=== PATIENT | female | born 1930 | race Caucasian/White ===

== ENCOUNTER 2018-02-25 17:03 | Inpatient (IN) | payer OTHER ==
--- NOTE | 2018-02-25 18:18 | EDPHY ---
H & P Time Seen by Provider: 02/25/18 18:06 HPI/ROS: Chief complaint. Fainted HPI. 87-year-old female had a syncopal episode this morning. She was in the bathroom and had which she says was a queasy stomach. There was no abdominal pain however. She got somewhat dizzy and lightheaded and felt that she might pass out so she sat down on the toilet. She awoke on the floor. She bumped her head. She also complains of neck pain. No chest pain or shortness of breath. Normal vision. She has had some congestion but no fever. Recent exposure to flu. No abdominal pain. No injury to arms or legs. She has a bump on her forehead. She is not on blood thinners ROS 10 systems were reviewed and negative with the exception of the elements mentioned in the history of present illness Past Medical/Surgical History: Hypertension, TIA, dyslipidemia Social History: Single, nonsmoker, no alcohol Smoking Status: Former smoker Physical Exam: General Appearance: Alert well-developed female mild distress vital signs are stable Eyes: Pupils equal and round no pallor or injection. ENT, no hemotympanum or Long sign. No oral pharyngeal or dental trauma. She has an abrasion and hematoma to the mid forehead. Respiratory: There are no retractions, lungs are clear to auscultation. Cardiovascular: Regular rate and rhythm. Gastrointestinal: Abdomen is soft and nontender, no masses, bowel sounds normal. Neurological: Awake and alert, sensory and motor exams grossly normal. Skin: Warm and dry, no rashes. Musculoskeletal: Neck is tender in the upper midline. No T, L, S spine tenderness Extremities symmetrical, full range of motion. Psychiatric: Patient is oriented X 3, there is no agitation. Constitutional: Initial Vital Signs Temperature (C) 36.5 C 02/25/18 17:04 Heart Rate 78 02/25/18 17:04 Respiratory Rate 18 02/25/18 17:04 Blood Pressure 184/83 H 02/25/18 17:04 O2 Sat (%) 97 02/25/18 17:04 O2 Delivery Mode Room Air Home Medications: Medication Instructions Recorded Aspirin [Aspirin 325 mg (*)] 325 mg PO DAILY 02/25/18 Simvastatin [Zocor] 20 mg PO 02/25/18 amLODIPine BESYLATE [Norvasc 10 mg 10 mg PO DAILY 02/25/18 (*)] Medical Decision Making - Diagnostics EKG Interpretation: EKG interpreted by me shows normal sinus rhythm with normal interval and axis. QRS is normal. There is the for R-wave progression. No significant ST elevation or depression. No arrhythmia. The rate is 70 Imaging Results: Imaging Impressions Cervical Spine CT 02/25/18 18:32 Impression: 1. Unstable displaced annulated fracture of the odontoid process with posterior subluxation of C1 on C2. 2. Comminuted minimally displaced fractures of the right and left posterior arch of C1. 3. Possible nondisplaced avulsion fractures of the anterior aspect of C1. 4. Mild anterior height reduction at T1, age indeterminate. 5. Additional findings as above. Findings discussed with Dr. Roman Rivas on 02/25/2018 at 19:24. Head CT 02/25/18 18:32 Impression: 1. No acute intracranial findings. 2. Limited visualization of cervical fractures seen better on the comparison from the same day. 3. Diffuse cerebral atrophy with periventricular and subcortical low attenuation consistent with chronic microvascular ischemic gliosis. Noncontrast head CT shows no intracranial bleeding or injury CT cervical spine shows displaced angulated fracture of the odontoid process with posterior subluxation of C1 on C2. Comminuted minimally displaced fractures of the right and left posterior arch of C1 One-view chest x-ray interpreted by me shows probable atelectasis left lower lobe. Possible infiltrate Procedures: IV normal saline, monitor Patient is placed in a Bee J collar Morphine for pain ED Course/Re-evaluation: Serial evaluations patient is stable . She is neurologically intact I discussed the laboratory EKG finding and studies with the patient and family. They expressed understanding and agreement with recommendation for admission I consulted discussed case with Dr. Terry for Neurosurgery who will review the images and see the patient in consultation I consulted discussed the case with Dr. Edmond, hospitalist who agrees to the admission Differential Diagnosis: Syncope of unclear etiology. It includes vasovagal as she had some queasy stomach at the onset. I have considered acute coronary syndrome as well as a arrhythmia is. Patient has a hematoma to her forehead and C1 unstable fracture from her fall - Data Points Laboratory Results: Laboratory Results 02/25/18 18:04 02/25/18 18:04 02/25/18 02/25/18 02/25/18 18:51 18:04 18:04 WBC RBC Hgb Hct MCV MCH MCHC RDW Plt Count MPV Neut % (Auto) Lymph % (Auto) Calhoun % (Auto) Eos % (Auto) Baso % (Auto) Nucleat RBC Rel Count Absolute Neuts (auto) Absolute Lymphs (auto) Absolute Monos (auto) Absolute Eos (auto) Absolute Basos (auto) Absolute Nucleated RBC Immature Gran % Immature Gran # Sodium 128 mEq/L L mEq/L (135-145) Potassium 4.2 mEq/L mEq/L (3.5-5.2) Chloride 94 mEq/L L mEq/L (97-110) Carbon Dioxide 23 mEq/l mEq/l (22-31) Anion Gap 11 mEq/L mEq/L (6-14) BUN 13 mg/dL mg/dL (7-23) Creatinine 0.5 mg/dL L mg/dL (0.6-1.0) Estimated GFR > 60 Glucose 114 mg/dL H mg/dL (70-100) Calcium 9.7 mg/dL mg/dL (8.5-10.4) POC Troponin I 0.02 ng/mL ng/mL (0.00-0.08) Lipase 74 IU/L IU/L (23-300) Nasal Influenza A PCR NEGATIVE FOR FLU A (NEGATIVE) Nasal Influenza B PCR NEGATIVE FOR FLU B (NEGATIVE) 02/25/18 18:04 WBC 5.10 10^3/uL 10^3/uL (3.80-9.50) RBC 4.74 10^6/uL 10^6/uL (4.18-5.33) Hgb 14.4 g/dL g/dL (12.6-16.3) Hct 42.1 % % (38.0-47.0) MCV 88.8 fL fL (81.5-99.8) MCH 30.4 pg pg (27.9-34.1) MCHC 34.2 g/dL g/dL (32.4-36.7) RDW 13.9 % % (11.5-15.2) Plt Count 254 10^3/uL 10^3/uL (150-400) MPV 9.1 fL fL (8.7-11.7) Neut % (Auto) 72.3 % % (39.3-74.2) Lymph % (Auto) 15.3 % % (15.0-45.0) Calhoun % (Auto) 11.8 % % (4.5-13.0) Eos % (Auto) 0.0 % L % (0.6-7.6) Baso % (Auto) 0.4 % % (0.3-1.7) Nucleat RBC Rel Count 0.0 % % (0.0-0.2) Absolute Neuts (auto) 3.69 10^3/uL 10^3/uL (1.70-6.50) Absolute Lymphs (auto) 0.78 10^3/uL L 10^3/uL (1.00-3.00) Absolute Monos (auto) 0.60 10^3/uL 10^3/uL (0.30-0.80) Absolute Eos (auto) 0.00 10^3/uL L 10^3/uL (0.03-0.40) Absolute Basos (auto) 0.02 10^3/uL 10^3/uL (0.02-0.10) Absolute Nucleated RBC 0.00 10^3/uL 10^3/uL (0-0.01) Immature Gran % 0.2 % % (0.0-1.1) Immature Gran # 0.01 10^3/uL 10^3/uL (0.00-0.10) Sodium Potassium Chloride Carbon Dioxide Anion Gap BUN Creatinine Estimated GFR Glucose Calcium POC Troponin I Lipase Nasal Influenza A PCR Nasal Influenza B PCR Medications Given: Discontinued Medications Morphine Sulfate (Morphine) 4 mg IVP EDNOW ONE Stop: 02/25/18 19:44 Last Admin: 02/25/18 19:54 Dose: 2 mg Point of Care Test Results: Chemistry 02/25/18 18:51 POC Troponin I 0.02 ng/mL ng/mL (0.00-0.08) Departure - Departure Disposition: [facility] Acute Clinical Impression: Syncope Qualifiers: Syncope type: unspecified Qualified Code(s): R55 - Syncope and collapse Closed C1 fracture Qualifiers: Encounter type: initial encounter Fracture morphology: burst- unstable Qualified Code(s): S12.02XA - Unstable burst fracture of first cervical vertebra , initial encounter for closed fracture Condition: Fair Referrals: ASHLEY HUITRON MD [Other] - As per Instructions
[2018-02-25 19:19] LABS: PLATELET COUNT 254 10^3/uL (150-400)
[2018-02-25] MEDS ORDERED: NS 1,000 ML IV ONE (19:43)
--- NOTE | 2018-02-25 20:40 | CPEKG ---
Test Reason : OPEN Blood Pressure : / mmHG Vent. Rate : 070 BPM Atrial Rate : 070 BPM P-R Int : 174 ms QRS Dur : 083 ms QT Int : 393 ms P-R-T Axes : 000 060 077 degrees QTc Int : 425 ms Sinus rhythm Anterior infarct, old Confirmed by Roman Rivas ([id number]) on 02/25/2018 8:39:31 PM Referred By: Confirmed By:Roman Rivas
[2018-02-25] MEDS ORDERED: ACETAMINOPHEN 325 MG TAB PO PRN (23:13)
[2018-02-25] MEDS ORDERED: ONDANSETRON 4 MG/2 ML VIAL IVP PRN (23:13)
[2018-02-25] MEDS ORDERED: ONDANSETRON DISINTEGRATING 4 MG TAB PO PRN (23:13)
[2018-02-25] MEDS ORDERED: NS 1,000 ML IV SCH (23:15)
[2018-02-26] MEDS: HYDROCODONE/APAP 5/325 TAB PO PRN ×3 (01:03→17:01)
[2018-02-26] MEDS: hydrALAZINE 20 MG/ML VIAL IVP PRN ×3 (01:05→16:51)
--- NOTE | 2018-02-26 02:02 | GHP ---
DATE OF ADMISSION: 02/25/2018 CHIEF COMPLAINT: Syncope and neck pain. HISTORY OF PRESENT ILLNESS: The patient is a pleasant 87-year-old female with past medical history o f hypertension who was at her home in her usual state of health this morning. After she got out of t he shower, she says she started to feel nauseous and sat down on the toilet. She had a syncopal epis ode and after awakening from that, she was having significant neck pain, so she presented to [facility] emergency room for additional evaluation. She had a CT scan of her head, which sh owed no acute findings. A CT scan of her neck revealed displaced fracture of the odontoid process wi th posterior subluxation of C1 on C2. Neurosurgery was consulted on the case, and formal recommendat ion is pending at this time. The patient states she has not had any recurrent syncopal episodes over the past months. PAST MEDICAL HISTORY: History of TIA x2, hypertension, hyperlipidemia. MEDICATIONS: Aspirin 81 mg daily, amlodipine 2.5 mg daily, simvastatin 20 mg nightly. ALLERGIES: No known drug allergies. FAMILY HISTORY: Noncontributory. SOCIAL HISTORY: The patient is a nonsmoker. She is single. REVIEW OF SYSTEMS: CONSTITUTIONAL: No report of any fevers or chills. ENT: No recent upper respir atory illnesses. CARDIOVASCULAR: No complaints of any chest pains, palpitations. Positive for a sy ncopal episode today, but no recurrent syncopal episodes. RESPIRATORY: No complaints of shortness o f breath or productive cough. GI: Positive for nausea, but no emesis or focal abdominal pain. : No report of any difficulty with urination. NEUROLOGIC: No complaints of any headaches or focal we akness. HEMATOLOGIC: No history of any deep vein thrombosis or pulmonary embolism. PSYCHIATRIC: N o history of anxiety or depression. SKIN: No new skin rashes. MUSCULOSKELETAL: No focal joint martinez ns. PHYSICAL EXAM: VITAL SIGNS: Temperature 36.5, blood pressure 184/83, heart rate 78, respirations 18 , satting 97% on room air. GENERAL: Patient resting comfortably. She is arousable, interactive, an d oriented. No acute distress. HEENT: Extraocular movements intact. No scleral icterus appreciate d. NECK: Cervical collar in place. CHEST: Clear to auscultation. Normal respiratory effort. HEA RT: Regular rate and rhythm. No murmurs are appreciated. ABDOMEN: Soft, nontender, nondistended. : No Tyler catheter in place. EXTREMITIES: No significant pitting edema. NEUROLOGIC: 5/5 stre ngth in extremities. LABS: White blood cell count 5, hemoglobin 14, platelets 254. Sodium 128, potassium 4.2, chloride 9 4, bicarb 23, BUN 13, creatinine 0.5, glucose 114. IMAGING: As detailed in the HPI. ASSESSMENT AND PLAN: 1. Syncope, suspect vasovagal syncope. She has not had any recurrent syncopal events over the prior year. No murmur on exam. I recommend that we monitor her on telemetry overnight for any arrhythmia s. 2. Cervical fracture. Pain appears well controlled currently. Await further recommendations from N eurosurgery. 3. Hyponatremia, possibly syndrome of inappropriate antidiuretic hormone. We will check urine sodiu m and urine osmolality. We will hold intravenous fluids for now pending these results. 4. History of transient ischemic attack. The patient is on aspirin therapy. 5. Hypertension. The patient states good control with amlodipine 2.5 mg daily, but she has had quit e significantly elevated readings here in the hospital. We will continue with her current amlodipine but add as needed hydralazine. 6. Hyperlipidemia. Continue statin therapy. 7. Deep venous thrombosis prophylaxis. Hold heparin or Lovenox overnight until neurosurgical recomm endations. DISPOSITION: Will admit under observation for now. /[id number]/MODL
[2018-02-26 05:14] LABS: PLATELET COUNT 240 10^3/uL (150-400)
[2018-02-26 05:23] LABS: INR 0.98 (0.83-1.16); PROTIME(PATIENT) 13.2 SEC (12.0-15.0)
--- NOTE | 2018-02-26 11:20 | SOAPPROG ---
Downtime Inpatient Late Entry SOAP Note: Patient seen and examined at 740am today. She has a combined C1 C2 fx that is unlikely to heal but can probably be managed in a cervical collar. We will get her fitted with a better collar and get some upright images after that. It is likely she could be discharged to the care of her family for the holidays. She can fu with a neurosurgeon down in [place]. We will see her tmrw as well. Scott Walton MD
--- NOTE | 2018-02-26 16:13 | ECHO ---
[email or web address] [address] [address] Main: [phone] Fax: Transthoracic Echocardiogram Name: SHERRI SAPP MR#: [id number] Study Date: 02/26/2018 Study Time: 01:53 PM Date of : 1930 Age: 87 year(s) Height: 157.5 cm (62 in.) Weight: 49.9 kg (110 lb.) BSA: 1.48 m2 Gender: Female Examination: Echo Indication: Cardiac: syncope Image Quality: Adequate Contrast: Requested by: Jose Edmond BP: 166 mmHg/81 mmHg Heart Rate: Rhythm: Indication: Cardiac: syncope Procedure Staff Pig Handler: Ade Cedeno RDCS Reading Physician: Jeff Bolden MD Requesting Provider: Conclusions: Normal size left ventricle. Mild to moderate LVH. Normal global systolic LV function. EF is 68 %. No regional wall motion abnormality. Diastolic function is indeterminate. Mild mitral annular calcification. Trivial mitral valve regurgitation. Aortic sclerosis is present. Mild aortic valve regurgitation is present. Mild to moderate tricuspid valve regurgitation. The pulmonary artery pressure is mild to moderately increased. Right ventricular systolic pressure measures 45mmHg. Measurements: Chambers Valvular Assessment AV/MV Valvular Assessment TV/PV Normal Normal Normal Name Value Range Name Value Range Name Value Range Ao Gretchen (2D): 3.1 cm (1.4 cm-2.6 AV Vmax: 1.62 m/s (1 m/s-1.7 TR Vmax: 3.18 mm/s ( - ) cm) m/s) TR PGmax: 40 mmHg ( - ) IVSd (2D): 1.4 cm (0.6 cm-1.1 AV maxP mmHg ( - ) syst. PAP: 45 mmHg ( - ) cm) AV meanP mmHg ( - ) PV Vmax: 0.87 m/s (0.6 m/s-0.9 LVDd (2D): 3.6 cm (3.9 cm-5.3 HECTOR (VTI): 2.5 cm ( - ) m/s) cm) MV E Vmax: 0.90 m/s ( - ) PV PGmax: 3 mmHg ( - ) LVDs (2D): 2.2 cm (2.1 cm-4 MV A Vmax: 1.06 m/s ( - ) cm) MV E/A: 0.85 ( - ) LVPWd (2D): 1.2 cm ( - ) MV PHT: 0.091 s ( - ) LVOTd 2.0 cm 2.0 cm mm MVA (PHT): 2.4 s ( - ) LVEF (BP): 68 % (>=55 %) Patient: SHERRI SAPP Study Date: 02/26/2018 Page 1 of 2 01:53 PM RVDd(2D): 2.4 cm (1.9 cm-3.8 cmmm) Continued Measurements: Chambers Valvular Assessment AV/MV Valvular Assessment TV/PV Name Value Name Value Name Value LADs: 3.4 cm MV DecTime: 278 m/s CVP (est.): 5 mmHg LADs Lon.6 cm MV E' Septal: 0.07 m/s LA Area: 17.2 cm2 MV E/E' Septal: 13.40 LA Volume: 47 ml MV E/E' Lateral: 13.00 LA Volume Index: 31.8 ml/m2 RA Area: 13.5 cm2 Additional Vessels Name Value Ao Ascendin.0 cm Inferior Vena Cava: 1.5 cm Findings: Left Ventricle: Normal size left ventricle. Mild to moderate LVH. Normal global systolic LV function. EF is 68 %. No regional wall motion abnormality. Diastolic function is indeterminate. Right Ventricle: Normal size right ventricle. Normal RV function. Left Atrium: The left atrium is normal in size. Right Atrium: The right atrium is normal in size. Mitral Valve: The mitral valve is normal in appearance and function. Mild mitral annular calcification. Trivial mitral valve regurgitation. No mitral stenosis is present. Aortic Valve: The aortic valve is tri-leaflet. Aortic sclerosis is present. Mild aortic valve regurgitation is present. No aortic valve stenosis is present. Tricuspid Valve: The tricuspid valve is normal in appearance and function. Mild to moderate tricuspid valve regurgitation. The pulmonary artery pressure is mild to moderately increased. Right ventricular systolic pressure measures 45mmHg. Pulmonic Valve: The pulmonic valve is normal in appearance and function. Mild pulmonic valve regurgitation is noted. Aorta: The aorta is normal. Normal size aortic root measuring 3.1 cm. Normal size ascending aorta measuring 3.0 cm. IVC: The IVC is normal sized. Pericardium: No pericardial effusion. No pleural effusion. Exam Comments: Patient supine with neck brace. (No Signature Object) Patient: SHERRI SAPP Study Date: 02/26/2018 Page 2 of 2 01:53 PM [id number]
--- NOTE | 2018-02-26 16:58 | ASMTCMCOM ---
CM Note CM Note Notes: Reviewed chart. Pt presented to the Emergency Department via EMS s/p a syncopal event with severe neck pain. Pt admitted with a cervical fracture, hyponatremia. History includes HTN, TIA, and hyperlipidemia. Pt has a boyfriend. Discharge needs remain unclear at this time. CM will continue to follow. Discharge Plan: To be determined Date Signed: 02/26/2018 04:57 PM Electronically Signed By:Aubree Merritt RN
--- NOTE | 2018-02-26 17:33 | HOSPPROG ---
Hospitalist Progress Note Assessment/Plan: Subjective Follow-up on cervical fracture and syncope. Patient's daughter was present at the bedside today and she stated that there have been recurrent episodes where she feels very unsteady on her feet and lightheaded and has had some other syncopal events to apparently in the years prior. We discussed further evaluation with an echocardiogram and that we will continue on telemetry monitoring for any arrhythmias. We discussed that when she gets back to his own it may be a good idea to consult with the working second hand to consider prolonged cardiac monitoring considering these events seemed to be somewhat recurrent. Neck pain seems to be well controlled. Objective Vital signs as detailed below Exam General-awake alert conversant no acute distress, cervical collar in place Heart-regular rate and rhythm no murmurs Lungs-Clear to auscultation with normal respiratory effort Abdomen-soft nontender nondistended normal bowel sounds -no Tyler catheter in place Extremities-no significant pitting edema or calf pain with palpation Skin-no concerning skin rashes noted, stable ecchymoses Labs as detailed below Assessment and plan Syncope-no recurrence. Continue work with PT and OT. Obtain echocardiogram to evaluate for any valvular disease. Cervical fracture-appreciate Dr. Walton is input on the case. Continue cervical collar. Hyponatremia-urine studies appear consistent with SIADH. Fluid restriction put into place and etiology discussed with patient and her daughter. History of TIA-aspirin. Hypertension-possibly uncontrolled as quite persistently elevated here in the hospital. Continue with current atenolol and as needed hydralazine for now but may need additional agents added. Hyperlipidemia statin therapy. DVT prophylaxis-compression devices for now. Disposition-if stable from an ambulatory standpoint possibly could discharge in the coming 1-2 days back to home with family versus need for alf. Objective: Vital Signs Temp Pulse Resp BP Pulse Ox 36.7 C 93 18 179/81 H 92 02/26/18 16:00 02/26/18 16:00 02/26/18 16:00 02/26/18 16:00 02/26/18 16:00 Laboratory Results 02/26/18 04:40 02/26/18 04:40 02/25/18 02/26/18 02/27/18 05:59 05:59 05:59 Intake Total 800 Output Total 300 300 Balance -300 500 PT 13.2 SEC (12.0-15.0) 02/26/18 04:40 INR 0.98 (0.83-1.16) 02/26/18 04:40 ICD10 Worksheet Patient Problems: Problems Problem Status Onset Closed C1 fracture Acute Syncope Acute
[2018-02-26] MEDS: ATORVASTATIN CALCIUM 10 MG TAB PO SCH (21:43)
--- NOTE | 2018-02-26 22:44 | GCON ---
NEUROSURGERY CONSULT DATE OF CONSULTATION: 02/26/2018 REASON FOR CONSULTATION: Unstable odontoid fracture. HISTORY OF PRESENT ILLNESS: The patient is an 87-year-old, who fell in the shower, striking her head and had flu-like symptoms yesterday. Was brought to the [facility] emergency department. Was evaluate d. She did complain of neck pain. CT scan demonstrated a type 2 odontoid fracture with retrolisthes is, significant angulation, and the ring of C1 was actually sitting on the tip of the odontoid bone i tself. She was placed in a cervical collar. She is neurologically intact. Admitted overnight. Treva rosurgery was consulted yesterday. My partner was on-call, but I was the first surgeon in the hospit al this morning, and so, I came by to see the patient. She had an uneventful night in her cervical c ollar. PAST MEDICAL HISTORY: Significant for TIA x2. She has had hypertension, hyperlipidemia. MEDICATIONS: Aspirin, amlodipine, simvastatin. ALLERGIES: None. FAMILY HISTORY: Noncontributory. SOCIAL HISTORY: She is a nonsmoker. She is single. PHYSICAL EXAM: She had good strength in her deltoids, biceps, triceps, plantar flexors, extensor china lucis longus. She had no numbness or tingling. She was wearing a cervical collar. Did not fit terr ifically well, but it was immobilizing her head. She was in good spirits. DIAGNOSTIC REVIEW: CT scan demonstrates a type 2 odontoid fracture with retrolisthesis of the ring o f C1 and C2 posteriorly. There were also combined fractures of the left and right posterior arches o f C1. There was also mild anterior height reduction of T1. ASSESSMENT: The patient is an 87-year-old with a difficult problem with a combined C1-C2 fracture. Predominantly, the issue is the odontoid fracture in this case. She is neurologically intact, but th is fracture is quite unlikely to heal in its current location. An odontoid screw or an anterior appr oach to this fracture would be difficult, as there is significant angulation of the fracture, and the re is some displacement, which would make it difficult to capture the fragment itself. Posterior C1- C2 type stabilization procedure could be considered, although her bone quality on CT scan looks poor. She is auto fused at C4-5, and I suspect that there will be a substantial from the spond ylosis of her subaxial cervical spine on the fracture site itself. It is unclear if this approach wo uld lead to bony union or not, but it is a reasonable approach if the family wanted to pursue it. I discussed this with both the patient and then later this morning with both her daughter and grandson, who were present, and then I later called a family member in [place], Luis Alberto, who is a family physician in [place] and went over all of these findings with him. I also emailed the family pictures of the jocelyn grimes fracture itself. We discussed treatment with the modality that neurosurgeons commonly referred to as benign neglect, where she simply stays in a cervical collar and see how she does and wait, and if she does poorly with that approach, one could always consider stabilization in the future. We did discuss halo vest placement, and that can be challenging in someone of her age, as well as challengi ng in someone with poor bone quality. Given the angulation of the fracture, it is doubtful that even a halo vest immobilization, if it could be safely achieved, would lead to bony union. We will consu lt [employer] to come get her a better-fitting cervical collar and then get some upright x-rays later today and check the bony alignment of the fracture. The case has been reviewed with the on-ca physician, , who also concurs with this management plan, and we will follow up and s ee the patient tomorrow once these additional studies are completed. /[id number]/MODL
[2018-02-27] MEDS: hydrALAZINE 20 MG/ML VIAL IVP PRN (09:21)
--- NOTE | 2018-02-27 09:25 | NEUSURGPN ---
Assessment/Plan: 87 yo female with displaced fracture of the odontoid process with posterior subluxation of C1 on C2, bilateral C1 posterior arch fractures - neuro stable - upright C-spine x-rays with collar on: stable - PT/OT - no surgical intervention advised - stable from neurosurgery standpoint for discharge, she may follow up with a neurosurgeon in [place] Discussed. with Dr. Walton. Subjective: No significant neck pain. No UE/LE symptoms. In collar. Objective: Awake. Alert. PERRL. EOMI Facial expression symmetrical Muscle strength full at 5/5 Sensation intact - Physician Discussed Patient with Dr.: Walton Neurosurgery Physical Exam - Vitals, I&O, Labs I and O 02/26/18 02/27/18 02/28/18 05:59 05:59 05:59 Intake Total 1350 Output Total 300 300 Balance -300 1050 Weight 49.9 kg Intake: Oral (ml) 1350 Output: Urine (ml) 300 300 Toilet 300 300 Other: Intake Quantity Yes Yes Sufficient Number of Voids Toilet 1 3 Vital Signs Temp Pulse Resp BP Pulse Ox 36.7 C 80 20 178/93 H 96 02/27/18 08:00 02/27/18 08:00 02/27/18 08:00 02/27/18 08:00 02/27/18 08:00 Laboratory Results 02/26/18 04:40 02/26/18 04:40 ICD10 Worksheet Patient Problems: Problems Problem Status Onset Closed C1 fracture Acute Syncope Acute
[2018-02-27] MEDS ORDERED: MBX SOLN 30 ML BOTTLE PO PRN (14:10)
--- NOTE | 2018-02-27 16:27 | HOSPPROG ---
Hospitalist Progress Note Assessment/Plan: Subjective Follow-up on cervical fracture and syncope. No acute events overnight. Patient does complain of increased fatigue today. She states yesterday she felt as though she would be ready to go home today but she is uncertain at the current time. Multiple family members present at the bedside today. We discussed her elevated blood pressure readings that she probably needs to have a higher dose of amlodipine. She takes 2.5 mg in the outpatient setting. We also reviewed that her sodium level slightly worsened overnight and stressed the importance of fluid restriction. Objective Vital signs as detailed below Exam General-awake alert conversant no acute distress, cervical collar in place Heart-regular rate and rhythm no murmurs Lungs-Clear to auscultation with normal respiratory effort Abdomen-soft nontender nondistended normal bowel sounds -no Tyler catheter in place Extremities-no significant pitting edema or calf pain with palpation Skin-no concerning skin rashes noted, stable ecchymoses Labs as detailed below Assessment and plan Syncope-no recurrence. Likely vasovagal. Continue work with PT and OT. No major valve abnormalities on echocardiogram. Mild aortic valve regurgitation was noted. Cervical fracture-appreciate Dr. Walton is input on the case. Continue cervical collar. Anticipating neurosurgical follow-up upon return to [place]. Hyponatremia-urine studies appear consistent with SIADH. Slightly worsened today with the complaint of fatigue. Fluid restriction put into place and etiology discussed with patient and her daughter. History of TIA-aspirin. Hypertension-uncontrolled. I recommend increasing amlodipine to 5 mg nightly. Hyperlipidemia- statin therapy. DVT prophylaxis-compression devices for now. Disposition-uncertain about discharge today. I recommend we continue to keep her in the hospital and recheck her sodium level again tomorrow. Objective: Vital Signs Temp Pulse Resp BP Pulse Ox 37.3 C 85 16 157/75 H 91 L 02/27/18 16:00 02/27/18 16:00 02/27/18 16:00 02/27/18 16:00 02/27/18 16:00 Laboratory Results 02/26/18 04:40 02/26/18 04:40 02/26/18 02/27/18 02/28/18 05:59 05:59 05:59 Intake Total 1350 450 Output Total 300 300 Balance -300 1050 450 PT 13.2 SEC (12.0-15.0) 02/26/18 04:40 INR 0.98 (0.83-1.16) 02/26/18 04:40 ICD10 Worksheet Patient Problems: Problems Problem Status Onset Closed C1 fracture Acute Syncope Acute
[2018-02-27] MEDS: ATORVASTATIN CALCIUM 10 MG TAB PO SCH (20:11)
[2018-02-27] MEDS ORDERED: amLODIPine BESYLATE 5 MG TAB PO SCH (21:00)
[2018-02-28] MEDS ORDERED: amLODIPine BESYLATE 5 MG TAB PO SCH
--- NOTE | 2018-02-28 08:11 | NEUSURGPN ---
Assessment/Plan: 87 yo female with displaced fracture of the odontoid process with posterior subluxation of C1 on C2, bilateral C1 posterior arch fractures - neuro stable - wear cervical hard collar at all times - upright C-spine x-rays with collar on: stable - PT/OT - no surgical intervention advised - stable from neurosurgery standpoint for discharge, she may follow up with a neurosurgeon in [place] - Will sign off and follow peripherally, please contact us with any further questions/concerns Discussed. with Dr. Randolph. Subjective: No UE or LE symptoms. Neck pain minimal. Objective: Awake. Alert. PERRL. EOMI Facial expression symmetrical Muscle strength full at 5/5 Sensation intact - Physician Discussed Patient with Dr.: Randolph Neurosurgery Physical Exam - Vitals, I&O, Labs I and O 02/27/18 02/28/18 03/01/18 05:59 05:59 05:59 Intake Total 1350 1380 Output Total 300 870 Balance 1050 510 Intake: Oral (ml) 1350 1380 Output: Urine (ml) 300 870 Toilet 300 870 Other: Intake Quantity Yes Yes Sufficient Number of Voids Toilet 3 1 Vital Signs Temp Pulse Resp BP Pulse Ox 37.1 C 75 21 H 145/70 H 93 02/28/18 07:52 02/28/18 07:52 02/28/18 07:52 02/28/18 07:52 02/28/18 07:52 Laboratory Results 02/26/18 04:40 02/26/18 04:40 ICD10 Worksheet Patient Problems: Problems Problem Status Onset Closed C1 fracture Acute Syncope Acute
[2018-02-28 12:02] VITALS: BP 138/77
--- NOTE | 2018-02-28 12:03 | PDMN ---
Medical Necessity Medical necessity: [facility] General Admission: 87 yo initially presents w/ syncope, likely vasovagal, and neck pain. Initially OBS for workup of syncope and cervical fracture found, neurosurgery consulted. Conservative medical management w/ C-collar, PT/OT. During hospitalization pt cont to have HTN and a worsening hyponatremia and increased fatigue. Low Na and urine studies consistent w/ SIADH. Pt cont on TELE monitoring, fluid restriction, serial labs for Na checks and PT/OT. Meets [facility] criteria for general admission for electrolyte abnormalities Na<130, new. Hx TIAx2, HTN, HLD. Change to IP status 02/27/18 @1710 per MD order.
--- NOTE | 2018-02-28 16:42 | ASMTCMCOM ---
CM Note CM Note Notes: Pt medically stable for d/c home with friends/family support. Pt does not qualify for [facility] as she has no local PCP, is not being followed by a specialist and is leaving [place] on 03/03/18. No CM d/c needs identified. Date Signed: 02/28/2018 04:41 PM Electronically Signed By:SYLVIA Lee
--- NOTE | 2018-02-28 16:42 | ASMTLACE ---
LACE Length of stay for Answers: 2 days current admission Acuity / Level of Answers: Yes Care: Did the patient have an inpatient admission? Comorbidities - select Answers: Cerebrovascular disease all that apply (CVA, TIA, aneurysms, vasc ular dementia) Other Notes: HTN, hyperlipidemia # of Emergency department Answers: 1-2 visits in the last 6 months Score: 8 Date Signed: 02/28/2018 04:42 PM Electronically Signed By:SYLVIA Lee
--- NOTE | 2018-02-28 16:56 | PDDCSUM ---
Discharge Summary Discharge Summary: DISCHARGE DIAGNOSES: * traumatic cervical spine injury with odontoid fracture and fractures of the posterior arches of C1 * fall at home with injury * syncope was the cause of her fall; suspected vasovagal * SIADH with hyponatremia, uncertain cause of the SIADH * hypertension, chronic, with elevated blood pressures at this time * known osteoporosis with a previous foot fracture CONSULTANTS: Dr. Scott Walton of Neurosurgery PROCEDURES: CT scan of CT scan of cervical spine on 2 occasions HOSPITAL COURSE SUMMARY: This patient visiting here from [place] had taken any hot shower and following hot shower began to feel somewhat nauseous and then lightheaded. She sat down but ended up shortly thereafter syncoping and fell to the floor striking her head. There were no cardiac or pulmonary or neurologic symptoms or fevers or other infectious symptoms prior to the syncope episode. Since the syncope she has not had any recurrent syncope like symptoms. She did have significant neck pain after the fall and so presented to the emergency room. At that point there was pain and tenderness on neck exam so CT scan of the neck was done showing an odontoid fracture as well as fractures of the posterior arches of C1. She is placed in a rigid collar which she is to keep on at all times. She has not had any symptoms to suggest nerve impingement or cord injury. She was seen by Neurosurgery and it is elected at this time to treat her conservatively. She will follow up with neuro surgeons in [place] as she returns there later this week. In terms of the syncope she does have 1 prior episode of syncope years ago. Again there were no cardiac symptoms at home otherwise. She was watched on surveillance monitor here which showed only sinus rhythm without conduction problems , and she has had normal troponin and unremarkable EKG here. An echocardiogram showed normal left ventricular ejection fraction, with good aortic mitral valve function. She did have some mild pulmonary hypertension which is suspected to be chronic as her chest x-ray show evidence of hyperexpansion of the lungs. She has not had any acute symptoms of dyspnea, has not had any tachycardia or bradycardia. Her blood pressures have actually been high through her stay here and she does have a history of hypertension. There has been no leg pain or swelling and no pleuritic pain in the chest. She Is not hypoxemic The patient was also noted to have a sodium 126 upon arrival here. This was associated with a urine sodium in the 80s and a higher osmolality. She does not take any diuretics and this is suspected to be SIADH though the cause of SIADH is not known. She was treated here with an oral fluid restriction and did well with that sodium now up to 130. It is notable that the patient does have a history of osteoporosis by bone testing and has a previous foot fracture. She is on calcium and vitamin-D but is not on any anti resorptive therapy and has not seen a bone specialist. Is recommended that she visit with a bone specialist at some point in the not too distant future She has been seen by Physical occupational therapist here and is up on her feet and is very steady. There is no evidence of concussion or brain injury is no gait instability. At this point she is stable for discharge to home. In terms of her C-spine injuries is recommended she keep in on her rigid collar at all times and follow up with Neurosurgery upon return home In terms of her syncope, this is felt to likely be vagal and we did give her instructions on avoiding vagal episode triggers. Her hyponatremia may have contributed to this as well. In terms of her hyponatremia it is recommended that she keep a somewhat restricted fluid intake however we want to be somewhat liberal with this as she just had a syncope spell we do not want her to be dehydrated. It would be reasonable to consider adding sodium but she does have inadequately controlled hypertension though it is mild at this point. The recommendation to her at this time is to have 1600 mL per 24 hr fluid intake restriction, allow moderate salt intake for the time being while keeping an eye on the blood pressure. Is recommended she see her primary care physician later this week to retest her serum sodium and her blood pressure. She is given instructions to be careful on snowy I see or other slippery conditions and watch for thing she might trip over, and is suggested she consider using a cane at this time. PENDING TEST RESULTS: None MEDICATION CHANGES: Increase of Norvasc to 5 mg daily FOLLOW-UP PLAN: She will return to [place] in 2 days where she lives She will be seen by neurosurgeon there and arrangements are being made for that It is recommended that she make an appoint with her primary care physician at the end of this week for rechecking her serum sodium and her blood pressure It is recommended that she make an appointment with an systems software developer or other bone specialist to assess her osteoporosis and fracture risk, to be sure see is engaged in the most effective preventive measures. Greater than 35 minutes bedside and care coordination time today
== END 2018-02-28 17:23 | disposition home or self-care (01) | DRG 552 ==
LOC: INTOOBSV 20:10 → F3N 22:31 → OBSVTOIN 02-27 17:10
PROVIDERS: ADMIT Internal Medicine; ATTEND Internal Medicine
DX: S12.030A Displaced posterior arch fracture of first cervical vertebra, initial encounter for closed fracture (principal); E87.1 Hypo-osmolality and hyponatremia; E86.9 Volume depletion, unspecified; W07.XXXA Fall from chair, initial encounter; I10 Essential (primary) hypertension; M81.0 Age-related osteoporosis without current pathological fracture
CPT/HCPCS: 84484-ER; 92523-GN; 96374; 97116-GP; 97161-GP; 97165-GO; 97530-GP; 97535-GO; G0378; G8978-GP-CJ; G8979-GP-CH; G8980-GP-CI; G8987-GO-CI; G8988-GO-CH; G9168-GN-CH; G9169-GN-CH; G9170-GN-CH; J0360; J2270; J2405; L0174

== ENCOUNTER 2018-03-02 17:32 | Emergency (ER) | payer OTHER ==
--- NOTE | 2018-03-02 17:52 | EDPHY ---
H & P Time Seen by Provider: 03/02/18 17:50 HPI/ROS: CHIEF COMPLAINT: Neck pain HISTORY OF PRESENT ILLNESS: Patient was admitted on February 27 with syncope suspected vasovagal. She had SIADH with a sodium of 126 and was noted to have an odontoid and posterior arch of C1 fracture. She was treated in a rigid collar. Then today around 2:00 p.m. She coughed and then had sudden saw onset of left- sided neck pain associated with a little bit of difficulty swallowing. She has been able to swallow tea and her own saliva since then. Not associated with weakness or numbness in arms or legs. No headache, no dizziness or vertigo. No difficulty with speech or balance. Symptoms mild to moderate. Not better worse with anything. REVIEW OF SYSTEMS: Eye: no change in vision ENT: no sore throat Cardiac: no chest pain or syncope Pulmonary: no cough or SOB Abdomen: no vomiting, diarrhea, abdominal pain Musculoskeletal: HPI Skin: no rash Neuro: no headache Constitutional: no fever : no urinary symptoms A comprehensive 10 point review of systems is otherwise negative aside from elements mentioned in the history of present illness. PAST MEDICAL HISTORY: Includes hypertension, hyperlipidemia, TIA, right shoulder surgery. Cervical spine fracture, discharge summary dated 02/28/2018 personally reviewed Social history: Visiting from [place] General Appearance: Alert and conversant, cooperative. Eyes: No scleral icterus. Pupils equal reactive extraocular motion intact. ENT, Mouth: Slightly dry mucous membranes. Patient has some left paraspinal neck muscle tenderness at the base of the neck by the trapezius, but no midline tenderness. Respiratory: Normal respiratory effort, breath sounds equal, lungs are clear to auscultation. Cardiovascular: Regular rate and rhythm. Gastrointestinal: Abdomen is soft and non tender. Neurological: Alert, face symmetric, normal motor and sensory in extremities. Ambulatory. Normal motor in deltoids, triceps, biceps, wrist extensors, and intrinsics. Normal sensory and radial ulnar and median nerve distributions in both arms. Skin: Warm and dry, no rashes. Musculoskeletal: No peripheral edema. Psychiatric: Not agitated. Emergency Department course/MDM: Plan for i-STAT, CT including CT angiogram of the neck; discussed and consented. I-STAT sodium 128, slightly higher from previous value of 126. 1933: Left C1 arch more posterior displaced, the normal vessels, otherwise negative per Carmela. 1945 and 1957: Discussed with kris Walton for outpatient management with collar as previously decided. Reviewed with patient and daughters. Warned that she may not have healing with this treatment plan, may require surgical treatment in the future, as relayed by neurosurgeon. They are aware. Smoking Status: Former smoker Constitutional: Initial Vital Signs Temperature (C) 36.6 C 03/02/18 17:37 Heart Rate 81 03/02/18 17:37 Respiratory Rate 16 03/02/18 17:37 Blood Pressure 180/97 H 03/02/18 17:37 O2 Sat (%) 93 03/02/18 17:37 O2 Delivery Mode Room Air Allergies/Adverse Reactions: No Known Allergies Allergy (Unverified 02/25/18 21:04) Home Medications: Medication Instructions Recorded Aspirin EC [Aspirin EC 325 mg (*)] 325 mg PO HS 02/25/18 Calcium Carb/Vitamin D3/Vit K1 2 tab PO DAILY@12 02/25/18 [Viactiv Soft Chew] Simvastatin 20 mg PO HS 02/25/18 Acetaminophen [Tylenol 325mg (*)] 650 mg PO Q4HRS PRN tab 02/28/18 amLODIPine BESYLATE [Norvasc 5 mg 5 mg PO HS #30 tab 02/28/18 (*)] Medical Decision Making - Diagnostics Imaging Results: Imaging Impressions Neck CTA 03/02/18 18:19 Impression: 1. Mild new posterior displacement of the left C1 ring fracture fragment. 2. No acute or posttraumatic arterial abnormality identified. Results discussed with Dr. Pineda at 7:32 PM Note: All stenoses are calculated using NASCET Criteria. General information for patients regarding this examination can be found at [email or web address]. If you have questions or comments about this report, please contact me at (hospital) or [phone] (cell). Imaging: Discussed imaging studies w/ fisher purse seine Radiologist Differential Diagnosis: Differential considered including but not limited to great vessel dissection, fracture displacement, new fracture, hematoma - Data Points Laboratory Results: 03/02/18 18:18 POC Hgb 17.0 gm/dL H gm/dL (12.6-16.3) POC Hct 50 % H % (38-47) POC Sodium 128 mEq/L L mEq/L (135-145) POC Potassium 3.8 mEq/L mEq/L (3.3-5.0) POC Chloride 92 mEq/L L mEq/L (97-110) POC BUN 15 mg/dL mg/dL (7-23) POC Creatinine 0.4 mg/dL L mg/dL (0.6-1.0) POC Glucose 107 mg/dL H mg/dL (70-100) Medications Given: Discontinued Medications Hydrocodone Bitart/Acetaminophen ([place] 5/325mg Prepack#6) 1 btl TAKEHOME EDNOW ONE Stop: 03/02/18 20:03 Last Admin: 03/02/18 20:18 Dose: 1 btl Fentanyl (Sublimaze) 50 mcg IVP EDNOW ONE Stop: 03/02/18 19:07 Last Admin: 03/02/18 19:12 Dose: 50 mcg Sodium Chloride (Ns) 1,000 mls @ 0 mls/hr IV EDNOW ONE; Wide Open PRN Reason: Protocol Stop: 03/02/18 19:07 Last Admin: 03/02/18 19:11 Dose: 1,000 mls Point of Care Test Results: Chemistry 03/02/18 18:18 POC Sodium 128 mEq/L L mEq/L (135-145) POC Potassium 3.8 mEq/L mEq/L (3.3-5.0) POC Chloride 92 mEq/L L mEq/L (97-110) POC BUN 15 mg/dL mg/dL (7-23) POC Creatinine 0.4 mg/dL L mg/dL (0.6-1.0) POC Glucose 107 mg/dL H mg/dL (70-100) ISTAT H&H 03/02/18 18:18 POC Hgb 17.0 gm/dL H gm/dL (12.6-16.3) POC Hct 50 % H % (38-47) Departure - Departure Disposition: Home, Routine, Self-Care Clinical Impression: Closed C1 fracture Qualifiers: Encounter type: subsequent encounter Fracture morphology: unspecified fracture morphology Fracture alignment: displaced Condition: Good Instructions: Hydrocodone/Acetaminophen (By mouth), [place] J Collar (ED) Additional Instructions: your sodium level is 128 today. Follow up with your neurosurgeon. Take pain medications as needed. Referrals: PRIOR,ASHLEY [Other] - As per Instructions
[2018-03-02] MEDS ORDERED: IOPAMIDOL (ISOVUE 370) 100 ML BTL IV ONE (18:32)
[2018-03-02] MEDS ORDERED: fentaNYL 100 MCG/2 ML INJ IVP ONE (19:06)
[2018-03-02] MEDS ORDERED: NS 1,000 ML IV ONE (19:06)
[2018-03-02] MEDS ORDERED: HYDROCOD/APAP 5/325 PREPACK#6 BTL TAKEHOME ONE (20:02)
[2018-03-02 20:29] VITALS: BP 179/116
== END 2018-03-02 20:28 | disposition home or self-care (01) ==
DX: S12.090D Other displaced fracture of first cervical vertebra, subsequent encounter for fracture with routine healing (principal); W19.XXXA Unspecified fall, initial encounter; Y92.9 Unspecified place or not applicable; Y93.9 Activity, unspecified; Y99.9 Unspecified external cause status; Z87.891 Personal history of nicotine dependence
CPT/HCPCS: 70498; 96361; 96374; 99285; J3010; Q9967; 82435-PO; 82565-PO; 82947-PO; 84132-PO; 84295-PO; 84520-PO; 85014-PO